=== PATIENT | female | born 1965 | race Caucasian/White ===

== ENCOUNTER → 2021-11-29 | Day surgery (SDC) | payer MEDICARE ==
[~2021-11-29] VITALS: Ht 154.9 cm; Wt 66.0 kg
[~2021-11-29] MED LIST: ALLEGRA ALLERG180 MG PO; ASCORBIC ACID500 MG PO; ROSUVASTATIN CA20 MG PO; VITAMIN D325 MC2 PO; ZINC50 M2 PO
[2021-11-29 10:12] LABS: HCT 41.6 % (37.0-47.0); HGB 13.8 g/dl (12.5-16.0); MCH 31.8 pg (25.0-31.0); MCHC 33.2 g/dL (32.0-36.0); MCV 95.9 fL (78.0-100.0); MPV 11.3 fL (6.0-9.5); RBC 4.34 M/uL (4.20-5.40); RDW 12.4 % (11.5-14.0); WBC 6.5 K/uL (4.0-10.5)
[2021-11-29 11:30] LABS: ALBUMIN 4.4 g/dL (3.4-5.0); BILIRUBIN - TOTAL 0.7 mg/dL (0.2-1.0); BUN/CREAT RATIO (CALC) 24.6 RATIO; CREATININE 0.57 mg/dL (0.51-0.95); GLOBULIN (CALCULATION) 3.1 g/dL; POTASSIUM 4.3 mmol/L (3.5-5.1); TOTAL PROTEIN 7.5 g/dL (6.4-8.2)
== END | disposition home or self-care (01) ==
LOC: FAS 09:17
PROVIDERS: Orthopaedic Surgery
DX: G56.02 Carpal tunnel syndrome, left upper limb (principal)
CPT/HCPCS: 36415; 71045; 80053; 93005; J1100; J2250; J2405; J2704; J3010; J7120